=== PATIENT | female | born 1950 | race Caucasian/White ===

== ENCOUNTER 2019-08-23 09:45 | Inpatient (IN) ==
[2019-08-23] MEDS ORDERED: Ondansetron ODT 4 MG TAB.RAPDIS SL PRN (14:51)
[2019-08-23 20:55] LABS: Bilirubin,Urine Negative (Negative); Blood,Urine Negative (Negative); Clarity,Urine Slightly Cloudy (Clear); Glucose,Urine (UA) Normal (Normal); Ketones,Urine Negative (Negative); Leukocyte Esterase,Urine Negative (Negative); Nitrite,Urine Negative (Negative); Protein,Urine Negative (Neg-Trace); Specific Gravity,Urine 1.015 (1.010-1.025); Urobilinogen,Urine Normal (Normal)
[2019-08-23 20:57] LABS: Color,Urine Yellow (Yellow)
[2019-08-24 05:06] LABS: Hematocrit 42.3 % (35.3-44.9); Hemoglobin 13.8 g/dL (11.5-15.4); Mean Corpuscular HGB Conc 32.6 g/dL (31.6-35.5); Mean Corpuscular Hemoglobin 28.9 pg (28.0-33.3); Mean Corpuscular Volume 88.7 fL (83.0-100.0); Mean Platelet Volume 9.3 fL (9.4-12.4); Platelet Count 303 K/mcL (140-400); Red Blood Count 4.77 M/mcL (3.82-4.97); Red Cell Distribution Width 13.5 % (11.5-14.5); White Blood Count 11.4 K/mcL (4.3-11.1)
[2019-08-24 05:24] LABS: Alanine Aminotransferase 33 Units/L (7-52); Albumin 3.8 g/dL (3.5-5.7); Albumin/Globulin Ratio 1.4 (1.1-2.2); Alkaline Phosphatase 75 Units/L (34-104); Aspartate Amino Transferase 29 Units/L (13-39); BUN/Creatinine Ratio 24 (6-26); Bilirubin,Total 0.5 mg/dL (0.3-1.0); Blood Urea Nitrogen 15 mg/dL (8-23); Calcium 9.2 mg/dL (8.6-10.3); Carbon Dioxide 25 mEq/L (23-29); Chloride 105 mEq/L (98-107); Globulin 2.8 g/dL (2.4-3.5); Glucose 111 mg/dL (70-105); Magnesium 2.3 mg/dL (1.6-2.6); Osmolality,Calculated 284 (280-300); Potassium 4.1 mEq/L (3.5-5.1); Sodium 136 mEq/L (136-145); Total Protein 6.6 g/dL (6.4-8.9); eGFR For African Americans > 60 (> 60); eGFR For Non-African Americans > 60 (> 60)
[2019-08-24] MEDS: *HR* Enoxaparin 40 MG/0.4 ML SYRINGE SQ SCH (05:45)
[2019-08-24] MEDS: Aspirin Enteric Coated 81 MG Tablet PO SCH (09:00)
[2019-08-24] MEDS: Lisinopril 20 MG TABLET PO SCH (09:00)
[2019-08-25] MEDS: *HR* Enoxaparin 40 MG/0.4 ML SYRINGE SQ SCH (04:32)
[2019-08-25] MEDS: Lisinopril 20 MG TABLET PO SCH (08:22)
[2019-08-25] MEDS: Aspirin Enteric Coated 81 MG Tablet PO SCH (08:22)
[2019-08-26] MEDS: *HR* Enoxaparin 40 MG/0.4 ML SYRINGE SQ SCH (06:23)
[2019-08-26] MEDS: Lisinopril 20 MG TABLET PO SCH (09:04)
[2019-08-26] MEDS: Aspirin Enteric Coated 81 MG Tablet PO SCH (09:04)
[2019-08-27] MEDS: *HR* Enoxaparin 40 MG/0.4 ML SYRINGE SQ SCH (05:41)
[2019-08-27] MEDS: Aspirin Enteric Coated 81 MG Tablet PO SCH (09:49)
[2019-08-27] MEDS: Lisinopril 20 MG TABLET PO SCH (09:50)
[2019-08-27] MEDS: Acetaminophen 325 MG TABLET PO PRN (16:58)
[2019-08-28] MEDS: *HR* Enoxaparin 40 MG/0.4 ML SYRINGE SQ SCH (05:46)
[2019-08-28] MEDS: Lisinopril 20 MG TABLET PO SCH (16:20)
[2019-08-28] MEDS: Aspirin Enteric Coated 81 MG Tablet PO SCH (16:20)
[2019-08-28] MEDS: Acetaminophen 325 MG TABLET PO PRN (20:49)
[2019-08-29] MEDS: *HR* Enoxaparin 40 MG/0.4 ML SYRINGE SQ SCH (05:22)
[2019-08-29 05:26] LABS: Hematocrit 40.4 % (35.3-44.9); Hemoglobin 13.1 g/dL (11.5-15.4); Mean Corpuscular HGB Conc 32.4 g/dL (31.6-35.5); Mean Corpuscular Volume 89.4 fL (83.0-100.0); Mean Platelet Volume 9.4 fL (9.4-12.4); Platelet Count 286 K/mcL (140-400); Red Blood Count 4.52 M/mcL (3.82-4.97); Red Cell Distribution Width 13.6 % (11.5-14.5); White Blood Count 8.9 K/mcL (4.3-11.1)
[2019-08-29 05:43] LABS: Alanine Aminotransferase 34 Units/L (7-52); Albumin 3.7 g/dL (3.5-5.7); Albumin/Globulin Ratio 1.5 (1.1-2.2); Alkaline Phosphatase 78 Units/L (34-104); Aspartate Amino Transferase 17 Units/L (13-39); BUN/Creatinine Ratio 24 (6-26); Bilirubin,Total 0.2 mg/dL (0.3-1.0); Blood Urea Nitrogen 14 mg/dL (8-23); Calcium 9.1 mg/dL (8.6-10.3); Carbon Dioxide 28 mEq/L (23-29); Chloride 103 mEq/L (98-107); Globulin 2.4 g/dL (2.4-3.5); Glucose 106 mg/dL (70-105); Magnesium 2.2 mg/dL (1.6-2.6); Osmolality,Calculated 283 (280-300); Sodium 136 mEq/L (136-145); Total Protein 6.1 g/dL (6.4-8.9); eGFR For African Americans > 60 (> 60); eGFR For Non-African Americans > 60 (> 60)
[2019-08-29] MEDS: Lisinopril 20 MG TABLET PO SCH (08:29)
[2019-08-29] MEDS: Aspirin Enteric Coated 81 MG Tablet PO SCH (08:29)
[2019-08-29] MEDS: Acetaminophen 325 MG TABLET PO PRN (20:03)
[2019-08-30] MEDS: *HR* Enoxaparin 40 MG/0.4 ML SYRINGE SQ SCH (05:40)
[2019-08-30] MEDS: Aspirin Enteric Coated 81 MG Tablet PO SCH (09:37)
[2019-08-30] MEDS: Lisinopril 20 MG TABLET PO SCH (09:37)
[2019-08-30] MEDS: Acetaminophen 325 MG TABLET PO PRN (21:52)
[2019-08-31] MEDS: *HR* Enoxaparin 40 MG/0.4 ML SYRINGE SQ SCH (06:15)
[2019-08-31] MEDS: Lisinopril 20 MG TABLET PO SCH (09:14)
[2019-08-31] MEDS: Aspirin Enteric Coated 81 MG Tablet PO SCH (09:14)
[2019-08-31] MEDS: Acetaminophen 325 MG TABLET PO PRN (20:34)
[2019-09-01] MEDS: *HR* Enoxaparin 40 MG/0.4 ML SYRINGE SQ SCH (05:54)
[2019-09-01] MEDS: Aspirin Enteric Coated 81 MG Tablet PO SCH (07:57)
[2019-09-01] MEDS: Lisinopril 20 MG TABLET PO SCH (07:57)
[2019-09-01] MEDS: Acetaminophen 325 MG TABLET PO PRN (21:35)
[2019-09-02] MEDS: *HR* Enoxaparin 40 MG/0.4 ML SYRINGE SQ SCH (04:49)
[2019-09-02] MEDS: Aspirin Enteric Coated 81 MG Tablet PO SCH (08:39)
[2019-09-02] MEDS: Lisinopril 20 MG TABLET PO SCH (08:39)
[2019-09-03] MEDS: *HR* Enoxaparin 40 MG/0.4 ML SYRINGE SQ SCH (04:47)
[2019-09-03] MEDS: Lisinopril 20 MG TABLET PO SCH (09:35)
[2019-09-03] MEDS: Aspirin Enteric Coated 81 MG Tablet PO SCH (09:35)
[2019-09-03 16:52] LABS: Bilirubin,Urine Negative (Negative); Blood,Urine Large (Negative); Clarity,Urine Clear (Clear); Color,Urine Yellow (Yellow); Glucose,Urine (UA) Normal (Normal); Ketones,Urine Negative (Negative); Leukocyte Esterase,Urine Small (Negative); Nitrite,Urine Negative (Negative); Protein,Urine Negative (Neg-Trace); Specific Gravity,Urine 1.015 (1.010-1.025); Urobilinogen,Urine Normal (Normal)
[2019-09-03 17:03] LABS: Bacteria,Urine Few per hpf (None-Few); Squamous Epithelial Cell,Urine Few per lpf (None-Few)
[2019-09-04] MEDS: *HR* Enoxaparin 40 MG/0.4 ML SYRINGE SQ SCH (05:00)
[2019-09-04 05:40] LABS: Hematocrit 39.2 % (35.3-44.9); Hemoglobin 12.6 g/dL (11.5-15.4); Mean Corpuscular HGB Conc 32.1 g/dL (31.6-35.5); Mean Corpuscular Hemoglobin 28.7 pg (28.0-33.3); Mean Corpuscular Volume 89.3 fL (83.0-100.0); Mean Platelet Volume 9.4 fL (9.4-12.4); Platelet Count 274 K/mcL (140-400); Red Blood Count 4.39 M/mcL (3.82-4.97); Red Cell Distribution Width 13.6 % (11.5-14.5); White Blood Count 8.5 K/mcL (4.3-11.1)
[2019-09-04 06:01] LABS: BUN/Creatinine Ratio 20 (6-26); Blood Urea Nitrogen 12 mg/dL (8-23); Calcium 9.2 mg/dL (8.6-10.3); Carbon Dioxide 27 mEq/L (23-29); Chloride 105 mEq/L (98-107); Glucose 102 mg/dL (70-105); Magnesium 2.3 mg/dL (1.6-2.6); Osmolality,Calculated 286 (280-300); Potassium 4.2 mEq/L (3.5-5.1); Sodium 138 mEq/L (136-145); eGFR For African Americans > 60 (> 60); eGFR For Non-African Americans > 60 (> 60)
[2019-09-04] MEDS: Aspirin Enteric Coated 81 MG Tablet PO SCH (08:19)
[2019-09-04] MEDS: Lisinopril 20 MG TABLET PO SCH (09:08)
[2019-09-04] MEDS: Acetaminophen 325 MG TABLET PO PRN (21:13)
[2019-09-05] MEDS: *HR* Enoxaparin 40 MG/0.4 ML SYRINGE SQ SCH (06:22)
[2019-09-05] MEDS: Aspirin Enteric Coated 81 MG Tablet PO SCH (07:59)
[2019-09-05] MEDS: Lisinopril 20 MG TABLET PO SCH (07:59)
[2019-09-05] MEDS: cephALEXin 250 MG CAPSULE PO SCH ×2 (16:38→21:38)
[2019-09-05] MEDS: Acetaminophen 325 MG TABLET PO PRN (21:38)
[2019-09-06] MEDS: *HR* Enoxaparin 40 MG/0.4 ML SYRINGE SQ SCH (06:20)
[2019-09-06] MEDS: Aspirin Enteric Coated 81 MG Tablet PO SCH (08:11)
[2019-09-06] MEDS: cephALEXin 250 MG CAPSULE PO SCH (08:12)
[2019-09-06] MEDS: Lisinopril 20 MG TABLET PO SCH (08:12)
[2019-09-06] MEDS: Nitrofurantoin (BID) 100 MG CAPSULE PO SCH ×2 (10:45→17:03)
[2019-09-06] MEDS: Acetaminophen 325 MG TABLET PO PRN (20:46)
[2019-09-07] MEDS: *HR* Enoxaparin 40 MG/0.4 ML SYRINGE SQ SCH (06:25)
[2019-09-07] MEDS: Lisinopril 20 MG TABLET PO SCH (07:55)
[2019-09-07] MEDS: Aspirin Enteric Coated 81 MG Tablet PO SCH (07:55)
[2019-09-07] MEDS: Nitrofurantoin (BID) 100 MG CAPSULE PO SCH ×2 (07:55→17:07)
[2019-09-07] MEDS: Acetaminophen 325 MG TABLET PO PRN (19:48)
[2019-09-08] MEDS: *HR* Enoxaparin 40 MG/0.4 ML SYRINGE SQ SCH (05:23)
[2019-09-08] MEDS: Aspirin Enteric Coated 81 MG Tablet PO SCH (08:16)
[2019-09-08] MEDS: Lisinopril 20 MG TABLET PO SCH (08:16)
[2019-09-08] MEDS: Nitrofurantoin (BID) 100 MG CAPSULE PO SCH ×2 (08:16→16:51)
[2019-09-08] MEDS: Acetaminophen 325 MG TABLET PO PRN (19:51)
[2019-09-09] MEDS: *HR* Enoxaparin 40 MG/0.4 ML SYRINGE SQ SCH (06:28)
[2019-09-09] MEDS: Aspirin Enteric Coated 81 MG Tablet PO SCH (08:11)
[2019-09-09] MEDS: Nitrofurantoin (BID) 100 MG CAPSULE PO SCH ×2 (08:11→16:53)
[2019-09-09] MEDS: Lisinopril 20 MG TABLET PO SCH (08:11)
[2019-09-09] MEDS: Acetaminophen 325 MG TABLET PO PRN (21:32)
[2019-09-10] MEDS: *HR* Enoxaparin 40 MG/0.4 ML SYRINGE SQ SCH (05:04)
[2019-09-10 05:24] LABS: Hematocrit 38.1 % (35.3-44.9); Hemoglobin 12.4 g/dL (11.5-15.4); Mean Corpuscular HGB Conc 32.5 g/dL (31.6-35.5); Mean Corpuscular Hemoglobin 29.2 pg (28.0-33.3); Mean Corpuscular Volume 89.9 fL (83.0-100.0); Mean Platelet Volume 9.3 fL (9.4-12.4); Platelet Count 263 K/mcL (140-400); Red Blood Count 4.24 M/mcL (3.82-4.97); Red Cell Distribution Width 13.9 % (11.5-14.5); White Blood Count 7.5 K/mcL (4.3-11.1)
[2019-09-10 05:45] LABS: BUN/Creatinine Ratio 20 (6-26); Blood Urea Nitrogen 11 mg/dL (8-23); Calcium 9.3 mg/dL (8.6-10.3); Carbon Dioxide 26 mEq/L (23-29); Chloride 106 mEq/L (98-107); Glucose 104 mg/dL (70-105); Magnesium 2.2 mg/dL (1.6-2.6); Osmolality,Calculated 286 (280-300); Potassium 4.1 mEq/L (3.5-5.1); Sodium 138 mEq/L (136-145); eGFR For African Americans > 60 (> 60); eGFR For Non-African Americans > 60 (> 60)
[2019-09-10] MEDS: Aspirin Enteric Coated 81 MG Tablet PO SCH (08:14)
[2019-09-10] MEDS: Lisinopril 20 MG TABLET PO SCH (08:14)
[2019-09-10] MEDS: Nitrofurantoin (BID) 100 MG CAPSULE PO SCH ×2 (08:14→17:14)
[2019-09-10] MEDS: Acetaminophen 325 MG TABLET PO PRN (19:57)
[2019-09-11] MEDS: Nitrofurantoin (BID) 100 MG CAPSULE PO SCH ×2 (06:33→17:11)
[2019-09-11] MEDS: *HR* Enoxaparin 40 MG/0.4 ML SYRINGE SQ SCH (06:34)
[2019-09-11] MEDS: Aspirin Enteric Coated 81 MG Tablet PO SCH (08:02)
[2019-09-11] MEDS: Lisinopril 20 MG TABLET PO SCH (08:02)
[2019-09-11] MEDS: Acetaminophen 325 MG TABLET PO PRN (21:27)
[2019-09-12] MEDS: *HR* Enoxaparin 40 MG/0.4 ML SYRINGE SQ SCH (06:26)
[2019-09-12] MEDS: Nitrofurantoin (BID) 100 MG CAPSULE PO SCH ×2 (09:55→16:41)
[2019-09-12] MEDS: Lisinopril 20 MG TABLET PO SCH (09:55)
[2019-09-12] MEDS: Aspirin Enteric Coated 81 MG Tablet PO SCH (09:55)
[2019-09-12] MEDS: Acetaminophen 325 MG TABLET PO PRN (20:21)
[2019-09-13] MEDS: *HR* Enoxaparin 40 MG/0.4 ML SYRINGE SQ SCH (05:45)
[2019-09-13] MEDS: Lisinopril 20 MG TABLET PO SCH (08:39)
[2019-09-13] MEDS: Nitrofurantoin (BID) 100 MG CAPSULE PO SCH (08:39)
[2019-09-13] MEDS: Aspirin Enteric Coated 81 MG Tablet PO SCH (08:39)
[2019-09-13] MEDS: Acetaminophen 325 MG TABLET PO PRN (20:13)
[2019-09-14] MEDS: *HR* Enoxaparin 40 MG/0.4 ML SYRINGE SQ SCH (06:23)
[2019-09-14] MEDS: Lisinopril 20 MG TABLET PO SCH (08:29)
[2019-09-14] MEDS: Aspirin Enteric Coated 81 MG Tablet PO SCH (08:29)
[2019-09-14] MEDS: Acetaminophen 325 MG TABLET PO PRN (20:22)
[2019-09-15] MEDS: *HR* Enoxaparin 40 MG/0.4 ML SYRINGE SQ SCH (05:59)
[2019-09-15] MEDS: Lisinopril 20 MG TABLET PO SCH (08:06)
[2019-09-15] MEDS: Aspirin Enteric Coated 81 MG Tablet PO SCH (08:06)
[2019-09-15] MEDS: Acetaminophen 325 MG TABLET PO PRN (20:52)
[2019-09-16] MEDS: *HR* Enoxaparin 40 MG/0.4 ML SYRINGE SQ SCH (06:10)
[2019-09-16] MEDS: Aspirin Enteric Coated 81 MG Tablet PO SCH (08:08)
[2019-09-16] MEDS: Lisinopril 20 MG TABLET PO SCH (08:08)
[2019-09-16] MEDS: Acetaminophen 325 MG TABLET PO PRN (20:45)
[2019-09-17] MEDS: *HR* Enoxaparin 40 MG/0.4 ML SYRINGE SQ SCH (06:05)
[2019-09-17 07:41] VITALS: BP 148/94
[2019-09-17] MEDS: Aspirin Enteric Coated 81 MG Tablet PO SCH (08:40)
[2019-09-17] MEDS: Lisinopril 20 MG TABLET PO SCH (08:40)
== END 2019-09-17 13:27 | disposition home health service (06) | DRG 57 ==
LOC: INPGRE 13:49
PROVIDERS: ADMIT Family Medicine; ATTEND Family Medicine